=== PATIENT | female | born 2000 | race Caucasian/White ===

== ENCOUNTER 2024-12-09 14:07 | Emergency (ER) | payer SELFPAY ==
[2024-12-09 15:01] LABS: Specific Gravity 1.019 (1.005-1.030)
[2024-12-09 15:08] LABS: Absolute Lymphocytes (CBC) 1.9 K/uL (0.7-4.9); Absolute Monocytes 0.9 K/uL (0.1-1.3); Absolute Neutrophil 10.1 K/uL (1.8-8.0); Basophils % 0.4 % (0-1.3); Eosinophils % 0.3 % (0-4.4); Hematocrit 37.7 % (36.0-45.0); Hemoglobin 13.3 g/dL (12.0-15.0); MCH 31.8 pg (27.0-35.0); MCHC 35.3 g/dL (32.0-36.0); MPV 8.6 fL (7.6-11.3); Monocytes % 6.6 % (3.3-12.3); Neutrophils % 77.7 % (41.7-73.7); Platelets 245 thou/uL (152-406); RBC Red Blood Cell Count 4.19 M/uL (3.86-4.86); Red Cell Distribution Width 13.6 % (12.1-15.2)
[2024-12-09 15:31] LABS: Anion Gap 12.6 mEq/L (5.0-15.0); Potassium 3.6 mEq/L (3.5-5.1)
[2024-12-09] MEDS ORDERED: NA CHLORIDE 0.9% 1,000 ML ONE (15:45)
[2024-12-09] MEDS ORDERED: ACETAMINOPHEN 500 MG TAB ONE (15:45)
[2024-12-09] MEDS ORDERED: METOCLOPRAMIDE 10 MG/2mL INJ ONE (15:45)
[2024-12-09] MEDS ORDERED: DIPHENHYDRAMINE 50 MG/ML VIAL ONE (15:45)
--- NOTE | 2024-12-09 15:49 | RAD REPORT ---
EXAMINATION: US FIRST TRIMESTER TRANSVAGINAL WITH DOPPLER CLINICAL INDICATION: with pelvic pain TECHNIQUE: Real-time obstetrical ultrasonography of the maternal pelvis and first trimester was performed transvaginally. Color and spectral Doppler evaluation of the ovaries was performed. COMPARISON: No prior exam. FINDINGS: The uterus measures 9 x 6 x 5 cm. A gestational sac is present within the endometrium. Within this is a pole with a crown rump le ngth 1.7 cm. Cardiac activity 179 bpm Right ovary normal in size and echotexture Left ovary normal in size and echotexture Right and left adnexa unremarkable No significant free fluid IMPRESSION: Single live intrauterine with an estimated gestational age 8 weeks 2 days CHRIS 07/19/2025
[2024-12-09 16:54] LABS: Specific Gravity 1.019 (1.005-1.030); Sqamous Epithelial <5 /HPF (None Seen); Urine Bacteria None Seen /HPF (<20); Urine Bilirubin NEGATIVE (Negative); Urine Blood Negative (Negative); Urine Clarity Extremely Turbid (Clear); Urine Color Light-Yellow (Yellow); Urine Crystals Unidentified Few /HPF (None Seen); Urine Culture Reflex Order REFLEXED; Urine Glucose NEGATIVE (Negative); Urine Ketones TRACE (Negative); Urine Microscopic Reflex YN ORDER UMIC; Urine Mucus Slight /HPF (None Seen); Urine Nitrite NEGATIVE (Negative); Urine Protein NEGATIVE (Negative); Urine RBC <5 /HPF (None Seen); Urine Urobilinogen Normal (Normal); Urine WBC <5 /HPF (<5)
--- NOTE | 2024-12-09 18:10 | ER ---
Nurse's Notes [facility] Name: Cristina Sandoval Age: 24 yrs Sex: Female : 2000 Arrival Date: 12/09/2024 Time: 14:07 Bed 18 Private MD: Diagnosis: related conditions, unspecified, first trimester;Lower abdominal pain, unspecified Presentation: 12/09 14:41 Chief complaint: Patient states: ABDOMINAL PAIN AFTER JOGGING AT 11AM. PT REPORTS 8 dd2 WEEKS , DENIES BLEEDING OR SPOTTING. Coronavirus screen: At this time, the client does not indicate any symptoms associated with coronavirus-19. Ebola Screen: No symptoms or risks identified at this time. Initial Sepsis Screen: Does the patient meet any 2 criteria? No. Patient's initial sepsis screen is negative. Does the patient have a suspected source of infection? No. Patient's initial sepsis screen is negative. Risk Assessment: Do you want to hurt yourself or someone else? Patient reports no desire to harm self or others. Onset of symptoms was December 09, 2024 at 11:00. 14:41 Method Of Arrival: Ambulatory dd2 14:41 Acuity: GILDA 3 dd2 Triage Assessment: 14:43 General: Appears in no apparent distress. uncomfortable, Behavior is calm, cooperative, dd2 appropriate for age. Pain: Complains of pain in left lower quadrant and right lower quadrant Pain does not radiate. Pain currently is 7 out of 10 on a pain scale. at worst was 10 out of 10 on a pain scale. Quality of pain is described as crampy. EENT: No deficits noted. No signs and/or symptoms were reported regarding the EENT system. Neuro: No deficits noted. Cardiovascular: No deficits noted. Respiratory: No deficits noted. Airway is patent Respiratory effort is even, unlabored, Respiratory pattern is regular, symmetrical. GI: Abdomen is flat, non-distended, Bowel sounds present X 4 quads. Abd is soft X 4 quads Abdomen is tender to palpation in right lower quadrant and left lower quadrant Reports lower abdominal pain. :. Derm: No deficits noted. No signs and/or symptoms reported regarding the dermatologic system. Musculoskeletal: No deficits noted. No signs and/or symptoms reported regarding the musculoskeletal system. Circulation, motion, and sensation intact. Range of motion: intact in all extremities. 14:43 : Urine is cloudy, Reports cramping, in right in left lower quadrant(s) Denies dd2 burning with urination, inability to void, urinary frequency, vaginal bleeding. 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 - Infectious Disease History:: Denies. - Social history:: Smoking status: Patient denies any tobacco usage or history of. Screenin:49 [facility] ED Fall Risk Assessment (Adult) History of falling in the last 3 months, dd2 including since admission No falls in past 3 months (0 pts) Confusion or Disorientation No (0 pts) Intoxicated or Sedated No (0 pts) Impaired Gait No (0 pts) Mobility Assist Device Used No (0 pt) Altered Elimination No (0 pt) Score/Fall Risk Level 0 - 2 = Low Risk Oriented to surroundings, Maintained a safe environment, Educated pt \T\ family on fall prevention, incl call for assistance when getting out of bed, Assessed \T\ reinforced patient's understanding of fall precautions, Hourly rounding (assess needs \T\ fall precautionary measures) done. Abuse screen: Denies threats or abuse. Denies injuries from another. Nutritional screening: No deficits noted. Tuberculosis screening: No symptoms or risk factors identified. Assessment: 14:49 Reassessment: SEE TRIAGE ASSESSMENT FOR FULL ASSESSMENT. dd2 Vital Signs: 14:41 BP 111 / 62; Pulse 97; Resp 16; Temp 98.4; Pulse Ox 100% on R/A; Pain 7/10; dd2 15:30 BP 93 / 74; Pulse 86; Resp 16; Pulse Ox 100% on R/A; dd2 16:30 BP 114 / 70; Pulse 88; Resp 16; Pulse Ox 100% on R/A; dd2 17:30 BP 99 / 63; Pulse 85; Resp 15; Pulse Ox 100% on R/A; dd2 18:40 BP 104 / 68; Pulse 80; Resp 16; Temp 98.2; Pulse Ox 99% on R/A; dd2 14:41 Pain Scale: Adult dd2 [place] Coma Score: 14:49 Eye Response: spontaneous(4). Motor Response: obeys commands(6). Verbal Response: dd2 oriented(5). Total: 15. ED Course: 14:10 Patient arrived in ED. al6 14:11 Philip Sandoval PA is PHCP. cp 14:11 Raina Kaur MD is Attending Physician. cp 14:12 Kaylah Goyal, JOSE J is Primary Nurse. aa5 14:19 Philip Sandoval PA is PHCP. cp 14:43 Triage completed. dd2 14:43 Arm band placed on right wrist. dd2 14:49 Patient has correct armband on for positive identification. Bed in low position. Call dd2 light in reach. Client placed on continuous cardiac and pulse oximetry monitoring. NIBP monitoring applied. Door closed. Noise minimized. Warm blanket given. Pillow given. Verbal reassurance given. 14:49 No provider procedures requiring assistance completed. Urine collected: clean catch dd2 specimen. Patient maintains SpO2 saturation greater than 95% on room air. 14:57 Initial lab(s) drawn, by me, sent to lab. Inserted saline lock: 20 gauge in right dd2 antecubital area, using aseptic technique. Blood collected. Flushed with 10 mL NS. 14:59 Basic Metabolic Panel Sent. dd2 14:59 CBC with Diff Sent. dd2 14:59 Test, Urine Sent. dd2 15:00 Quantitative Hcg Sent. dd2 15:25 US Transvaginal Ob In Process Unspecified. EDMS 18:03 ROB COELLO, RN is Primary Nurse. dd2 18:40 Provided Education on: D/C EDUCATION, F/U. dd2 18:40 IV discontinued, intact, bleeding controlled, No redness/swelling at site. Pressure dd2 dressing applied. Administered Medications: 15:51 Drug: Acetaminophen PO 1000 mg PO once Route: PO; dd2 17:49 Follow up: Response: No adverse reaction cm10 15:51 Drug: NS 0.9% IV 1000 ml IV at 1 bolus Per protocol; to be given as a bolus over 60 dd2 minutes Route: IV; Rate: 1 bolus; Site: right antecubital; 17:49 Follow up: Response: No adverse reaction; IV Status: Completed infusion; IV Intake: cm10 1000ml 15:51 Not Given (Patient Refused): [id number] mg IVP once; over 1 to 2 minutes dd2 15:51 Not Given (Patient Refused): [id number] mg IVP once dd2 Medication: 14:49 VIS not applicable for this client. dd2 Intake: 17:49 IV: 1000ml; Total: 1000ml. cm10 Outcome: 18:10 Discharge ordered by . juli 18:40 Discharged to home ambulatory, dd2 18:40 Condition: stable 18:40 Discharge instructions given to patient, significant other, Instructed on discharge instructions, follow up and referral plans. Demonstrated understanding of instructions, follow-up care, 18:41 Patient left the ED. dd2 Signatures: Dispatcher [employer] EDKaylah Avendano, RN RN aa5 Philip Sandoval PA PA cp Martinez, Clarissa, RN RN cm10 ROB COELLO RN RN dd2 Megan Moses6
--- NOTE | 2024-12-09 18:10 | EDPHYS ---
Physician Documentation [facility] Name: Cristina Sandoval Age: 24 yrs Sex: Female : 2000 Arrival Date: 12/09/2024 Time: 14:07 Bed 18 Private MD: ED Physician Raina Kaur HPI: 12/09 14:27 This 24 yrs old Female presents to ER via Unassigned with complaints of Abdominal Pain cp - 8weeks preg. 14:27 The patient presents to the emergency department with abdominal pain, of the right cp lower quadrant and left lower quadrant. The estimated gestational age is 8 weeks. course: care: at a clinic. Associated signs and symptoms: Pertinent negatives: ruptured membranes, vaginal bleeding, vaginal discharge. 14:27 Previous pregnancies: the patient has never been . Patient reports lower cp abdominal cramping pain that started today after jogging at 11 am. 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 - Infectious Disease History:: Denies. - Social history:: Smoking status: Patient denies any tobacco usage or history of. ROS: 14:30 Eyes: Negative for injury, pain, redness, and discharge, cp 14:30 Constitutional: Negative for body aches, chills, fever, poor PO intake, 14:30 ENT: Negative for sore throat, 14:30 Cardiovascular: Negative for chest pain, palpitations, 14:30 Respiratory: Negative for cough, shortness of breath, wheezing, 14:30 Abdomen/GI: Positive for abdominal pain, of the right lower quadrant and left lower quadrant, Negative for vomiting, diarrhea, constipation, 14:30 Back: Negative for pain at rest, radiated pain, 14:30 : Negative for urinary symptoms, vaginal bleeding, 14:30 All other systems are negative, Exam: 14:35 Constitutional: The patient appears in no acute distress, alert, awake, non-toxic, well cp developed, well nourished, uncomfortable, 14:35 Head/Face: Normocephalic, atraumatic. cp 14:35 Eyes: Periorbital structures: appear normal, Conjunctiva: normal, no exudate, no injection, Lids and lashes: appear normal, bilaterally, 14:35 ENT: External ear(s): are unremarkable, Nose: is normal, Mouth: Lips: moist, Oral mucosa: moist, Posterior pharynx: Airway: no evidence of obstruction, patent, 14:35 Chest/axilla: Inspection: normal, 14:35 Cardiovascular: Rate: normal, Rhythm: regular, Edema: is not appreciated, JVD: is not appreciated, 14:35 Respiratory: the patient does not display signs of respiratory distress, Respirations: normal, no use of accessory muscles, no retractions, labored breathing, is not present, Breath sounds: are clear throughout, no decreased breath sounds, no stridor, no wheezing, 14:35 Abdomen/GI: Inspection: abdomen appears normal, Bowel sounds: active, all quadrants, Palpation: soft, in all quadrants, mild abdominal tenderness, in the right lower quadrant and left lower quadrant, rebound tenderness, is not appreciated, involuntary guarding, is not appreciated, 14:35 Back: CVA tenderness, is absent, 14:35 Neuro: Orientation: to person, place \T\ time. Mentation: is normal, Motor: moves all fours, strength is normal, Sensation: is normal, Vital Signs: 14:41 BP 111 / 62; Pulse 97; Resp 16; Temp 98.4; Pulse Ox 100% on R/A; Pain 7/10; dd2 15:30 BP 93 / 74; Pulse 86; Resp 16; Pulse Ox 100% on R/A; dd2 16:30 BP 114 / 70; Pulse 88; Resp 16; Pulse Ox 100% on R/A; dd2 17:30 BP 99 / 63; Pulse 85; Resp 15; Pulse Ox 100% on R/A; dd2 18:40 BP 104 / 68; Pulse 80; Resp 16; Temp 98.2; Pulse Ox 99% on R/A; dd2 14:41 Pain Scale: Adult dd2 [place] Coma Score: 14:49 Eye Response: spontaneous(4). Motor Response: obeys commands(6). Verbal Response: dd2 oriented(5). Total: 15. MDM: 14:13 Medical Screening Exam initiated cp 15:00 Differential diagnosis: Jose liriano, ectopic , uti. 18:10 Data reviewed: vital signs, nurses notes, lab test result(s), radiologic studies, cp ultrasound, and as a result, I will discharge patient. 18:10 I considered the following discharge prescriptions or medication management in the emergency department Medications were administered in the Emergency Department. See MAR. Counseling: I had a detailed discussion with the patient and/or guardian regarding the historical points, exam findings, and any diagnostic results supporting the discharge/admit diagnosis, lab results, radiology results, to return to the emergency department if symptoms worsen or persist or if there are any questions or concerns that arise at home. Special discussion: Based on the patient's Hx, exam, and Dx evaluation, there is no indication for emergent surgery or inpatient Tx. It is understood by the patient/guardian that if the Sx's persist or worsen they need to return immediately for re-evaluation. 12/09 14:31 Order name: Abo/rh Typing; Complete Time: 18:03 12/09 14:31 Order name: Basic Metabolic Panel; Complete Time: 15:54 12/09 15:54 Interpretation: Normal except: NA 135. 12/09 14:31 Order name: CBC with Diff; Complete Time: 15:54 12/09 15:54 Interpretation: Normal except: WBC 12.90; RAMIREZ% 77.7; LYM% 15.0; NEUT A 10.1. 12/09 14:31 Order name: Test, Urine; Complete Time: 15:54 12/09 15:54 Interpretation: Reviewed. 12/09 14:31 Order name: Quantitative Hcg; Complete Time: 15:54 12/09 15:55 Order name: UA Rfx Kranthi Cult if indicated; Complete Time: 17:02 12/09 17:02 Interpretation: Reviewed. 12/09 16:58 Order name: Urine Culture EDCA 12/09 14:31 Order name: US Transvaginal Ob; Complete Time: 15:54 12/09 15:55 Interpretation: Report reviewed. 12/09 14:31 Order name: IV Saline Lock; Complete Time: 14:57 12/09 14:31 Order name: Labs collected and sent; Complete Time: 14:57 12/09 14:31 Order name: NPO; Complete Time: 14:57 cp Administered Medications: 15:51 Drug: Acetaminophen PO 1000 mg PO once Route: PO; dd2 17:49 Follow up: Response: No adverse reaction cm10 15:51 Drug: NS 0.9% IV 1000 ml IV at 1 bolus Per protocol; to be given as a bolus over 60 dd2 minutes Route: IV; Rate: 1 bolus; Site: right antecubital; 17:49 Follow up: Response: No adverse reaction; IV Status: Completed infusion; IV Intake: cm10 1000ml 15:51 Not Given (Patient Refused): [id number] mg IVP once; over 1 to 2 minutes dd2 15:51 Not Given (Patient Refused): kojkvseaifqdeni06.5 mg IVP once dd2 Disposition: 20:09 Co-signature as Attending Physician, Raina Kaur MD I reviewed the patient's care gb1 provided by the Advanced Practice Provider and agree with the diagnosis and treatment plan. Disposition Summary: 12/09/24 18:10 Discharge Ordered Notes: Location: Home cp Problem: new cp Symptoms: have improved cp Condition: Stable cp Diagnosis - related conditions, unspecified, first trimester cp - Lower abdominal pain, unspecified cp Followup: cp - With: Private Physician - When: 2 - 3 days - Reason: Recheck today's complaints Discharge Instructions: - Discharge Summary Sheet cp - Abdominal Pain During cp - First Trimester of cp - Activity Restriction During cp - Complementary Therapies During cp - Exercise During cp Forms: - Medication Reconciliation Form cp - Antibiotic Education cp - Prescription Opioid Use cp - Patient Portal Instructions cp - Leadership Thank You Letter cp Signatures: Dispatcher [employer] [facility] Philip Sandoval PA PA cp Raina Kaur MD MD gb1 ROB COELLO RN RN dd2 Christelle Arteaga RN cm10 Corrections: (The following items were deleted from the chart) 14:34 14:34 Transvaginal Ob+US.RAD.BRZ ordered. [facility] EDCA 12/10 17:24 12/09 14:00 Constitutional: Negative for body aches, chills, fever, poor PO intake, cp cp 12/10 17:24 12/09 14:00 Abdomen/GI: Positive for abdominal pain, of the right lower quadrant and cp left lower quadrant, Negative for vomiting, diarrhea, constipation, cp 12/10 14:00 Respiratory: Negative for cough, shortness of breath, wheezing, cp cp 12/10 14:00 Cardiovascular: Negative for chest pain, palpitations, cp cp 12/10 14:00 Eyes: Negative for injury, pain, redness, and discharge, cp cp 12/10 14:00 ENT: Negative for sore throat, cp cp 12/10 14:00 Back: Negative for pain at rest, radiated pain, cp cp 12/10 14:00 : Negative for urinary symptoms, vaginal bleeding, cp cp 12/10 14:00 All other systems are negative, cp cp
[2024-12-09 19:05] VITALS: BP 104/68; TEMP 98.2; O2SAT 99
== END 2024-12-09 18:41 | disposition home or self-care (01) ==
LOC: ER 14:07
DX: O26.891 Other specified pregnancy related conditions, first trimester (principal); Z3A.08 8 weeks gestation of pregnancy
CPT/HCPCS: 36415; 76817; 80048; 81001; 81025; 84702; 85025; 86900; 86901; 87086; 87088; 96360; 96361; 99284; J1200; J2765; J7030